=== PATIENT | female | born 1960 | race African-American/Black ===

== ENCOUNTER 2019-05-31 11:31 | Emergency (ER) | payer OTHER ==
[~2019-05-31] VITALS: Ht 170.2 cm; Wt 158.8 kg
[2019-05-31] MEDS ORDERED: ATENOLOL 25 MG25 M1 PO (11:42)
[2019-05-31] MEDS ORDERED: NORVASC 2.5 MG2.5 M1 PO (11:43)
[2019-05-31] MEDS ORDERED: LOSARTAN-HCTZ1 EAC3 PO (11:43)
[2019-05-31] MEDS ORDERED: AMITRIPTYLINE H75 M2 PO (11:43)
[2019-05-31] MEDS ORDERED: IBUPROFEN 800800 M1 PO (11:44)
[2019-05-31 12:55] VITALS: BP 128/62
== END 2019-05-31 12:56 | disposition home or self-care (01) ==
LOC: M.ERS 11:31
DX: M25.562 Pain in left knee (principal); I10 Essential (primary) hypertension; M19.90 Unspecified osteoarthritis, unspecified site; Z88.5 Allergy status to narcotic agent; Z88.6 Allergy status to analgesic agent

== ENCOUNTER 2020-08-25 01:27 | Emergency (ER) | payer OTHER ==
[~2020-08-25] VITALS: Ht 172.7 cm; Wt 156.5 kg
[~2020-08-25 01:27] MED LIST: AMITRIPTYLINE H75 M2 PO; ATENOLOL 25 MG25 M1 PO; IBUPROFEN 800800 M1 PO; LOSARTAN-HCTZ1 EAC3 PO; NORVASC 2.5 MG2.5 M1 PO
[2020-08-25] MEDS ORDERED: ROBAXIN 750 MG750 MG PO (01:34)
[2020-08-25 03:01] LABS: ABSOLUTE BASOPHILS 0.1 thou/uL (0.0-0.2); ABSOLUTE EOSINOPHILS 0.1 thou/uL (0.0-0.7); ABSOLUTE LYMPHOCYTES 2.4 thou/uL (0.8-5.3); ABSOLUTE MONOCYTES 0.5 thou/uL (0.0-1.2); ABSOLUTE NEUTROPHILS 5.1 thou/uL (1.6-8.1); BASOPHILS 1.3 %; EOSINOPHILS 1.5 %; HEMATOCRIT 41.8 % (37.0-47.0); LYMPHOCYTES 29.1 %; MCH 23.4 pg (26.0-34.0); MCHC 31.1 g/dL (28.0-37.0); MCV 75.3 fL (80.0-100.0); MONOCYTES 5.9 %; MPV 7.7 fl. (7.2-11.1); NUCLEATED RBCS 0 /100WBC; PLATELET COUNT* 440 thou/uL (150-400); POLYS 62.2 %; RBC 5.55 mil/uL (4.20-5.00); RDW-CV 13.7 % (10.5-14.5); WBC 8.3 thou/uL (4.0-11.0)
[2020-08-25 03:08] LABS: CALCIUM 9.2 mg/dL (8.5-10.1); POTASSIUM 3.5 mmol/L (3.5-5.1)
[2020-08-25 03:12] LABS: ALBUMIN 3.4 g/dL (3.4-5.0); TOTAL BILIRUBIN 0.2 mg/dL (<0.1-1.0); TOTAL PROTEIN 7.8 g/dL (6.4-8.2)
[2020-08-25] MEDS ORDERED: HYDROCODON-ACE1 EAC8 PO (04:31)
[2020-08-25] MEDS ORDERED: ZOFRAN ODT4 MG PO (04:31)
[2020-08-25] MEDS ORDERED: PRILOSEC OTC20 MG PO (04:31)
[2020-08-25 04:49] VITALS: BP 100/66
--- NOTE | 2020-08-25 14:29 | EKG ---
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: [place] [id number] : 1960 Requested By: Amber Huerta Order Number: [id number] MD: Ye Francis Measurements Intervals [place] Rate: 61 P: 42 [place]: 185 QRS: -9 QRSD: 92 T: 17 QT: 468 QTc: 472 Interpretive Statements Sinus rhythm Left ventricular hypertrophy Baseline wander in lead(s) V5 No previous ECG available for comparison Electronically Signed On 08-25-2020 14:29:49 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
== END 2020-08-25 04:50 | disposition home or self-care (01) ==
LOC: M.ERS 01:27
PROVIDERS: Emergency Medicine
DX: R10.13 Epigastric pain (principal); I10 Essential (primary) hypertension; R06.02 Shortness of breath; Z79.899 Other long term (current) drug therapy; Z79.1 Long term (current) use of non-steroidal anti-inflammatories (NSAID); Z88.5 Allergy status to narcotic agent; Z88.6 Allergy status to analgesic agent

== ENCOUNTER 2021-03-29 07:40 | Emergency (ER) | payer OTHER ==
[~2021-03-29] VITALS: Ht 172.7 cm; Wt 156.5 kg
[~2021-03-29 07:40] MED LIST changes: +HYDROCODON-ACE1 EAC8 PO; +PRILOSEC OTC20 MG PO; +ROBAXIN 750 MG750 MG PO; +ZOFRAN ODT4 MG PO
[2021-03-29 08:50] LABS: ABSOLUTE BASOPHILS 0.1 thou/uL (0.0-0.2); ABSOLUTE EOSINOPHILS 0.1 thou/uL (0.0-0.7); ABSOLUTE LYMPHOCYTES 1.6 thou/uL (0.8-5.3); ABSOLUTE MONOCYTES 0.4 thou/uL (0.0-1.2); ABSOLUTE NEUTROPHILS 1.8 thou/uL (1.6-8.1); BASOPHILS 1.3 %; EOSINOPHILS 3.3 %; HEMATOCRIT 39.8 % (37.0-47.0); HEMOGLOBIN 12.9 gm/dL (12.0-15.0); MCH 24.2 pg (26.0-34.0); MCHC 32.4 g/dL (28.0-37.0); MCV 74.7 fL (80.0-100.0); MONOCYTES 10.4 %; MPV 8.2 fl. (7.2-11.1); NUCLEATED RBCS 0 /100WBC; PLATELET COUNT* 349 thou/uL (150-400); RBC 5.33 mil/uL (4.20-5.00); RDW-CV 14.5 % (10.5-14.5)
[2021-03-29 09:07] LABS: CALCIUM 9.4 mg/dL (8.5-10.1); CREATININE 0.8 mg/dL (0.6-1.3); POTASSIUM 3.2 mmol/L (3.5-5.1)
[2021-03-29 09:18] LABS: ALBUMIN 3.7 g/dL (3.4-5.0); TOTAL BILIRUBIN 0.5 mg/dL (<0.1-1.0); TOTAL PROTEIN 7.9 g/dL (6.4-8.2)
[2021-03-29 10:43] VITALS: BP 134/72
--- NOTE | 2021-03-29 11:33 | EKG ---
[place] [address] ELECTROCARDIOGRAM REPORT Name: MATTHEW KOWALSKI Room: 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 : 1960 Requested By: Kemal Richard Order Number: [id number] MD: Kirit Barroso Measurements Intervals [place] Rate: 56 P: 23 [place]: 194 QRS: -17 QRSD: 105 T: 3 QT: 471 QTc: 455 Interpretive Statements Sinus rhythm Left ventricular hypertrophy Anteroseptal infarct, old Compared to ECG 08/25/2020 01:39:13 Myocardial infarct finding now present Electronically Signed On 03-29-2021 11:33:10 CDT by Kirit Barroso [email or web address] <ELECTRONICALLY SIGNED> By: Kirit Barroso MD, [facility] 03/29/21 1133 0854 0854 Kirit Barroso MD, [facility] /EPI
== END 2021-03-29 10:44 | disposition home or self-care (01) ==
LOC: M.ERS 07:40
PROVIDERS: Family Medicine
DX: R06.00 Dyspnea, unspecified (principal); Z20.822 Contact with and (suspected) exposure to COVID-19; I10 Essential (primary) hypertension; M19.90 Unspecified osteoarthritis, unspecified site; Z88.5 Allergy status to narcotic agent; Z88.6 Allergy status to analgesic agent; Z79.899 Other long term (current) drug therapy